=== PATIENT | female | born 1995 | race Caucasian/White ===

== ENCOUNTER 2016-04-28 10:42 | Emergency (ER) | payer BC, OTHER ==
[2016-04-28 12:15] VITALS: BP 100/61
--- NOTE | 2016-04-28 13:42 | UC ---
FLU HPI - HPI Summary HPI Summary: cough, fever to 100.3 this am, ST, right ear pain x few days. Mother has flu and pneumonia so pt wants to be checked. - History of Current Complaint Chief Complaint: UCRespiratory Stated Complaint: FEVER,COUGH,EAR PAIN,SINUS Time Seen by Provider: 04/28/16 12:18 Hx Obtained From: Patient Hx Last Menstrual Period: 2 weeks ago ?: No Onset/Duration: Gradual Onset, Lasting Days, Still Present Severity Currently: Moderate Severity Initially: Moderate Pain Intensity: 7 Pain Scale Used: 0-10 Numeric Associated Signs & Symptoms: Positive: Fever, Cough, Sore Throat, Nasal Congestion Related Hx: Possible Flu/Infectious Exposure - Allergy/Home Medications Allergies/Adverse Reactions: Allergies Allergy/AdvReac Type Severity Reaction Status Date / Time No Known Allergies Allergy Verified 04/28/16 12:15 Home Medications: Home Medications Cetirizine* [ZyrTEC*] 10 mg PO DAILY 04/28/16 [History Confirmed 04/28/16] ValACYclovir (*) [Valtrex 1 GM(*)] 1 gm PO SEE INSTRUCTIONS 04/28/16 [History Confirmed 04/28/16] PMH/Surg Hx/FS Hx/Imm Hx Previously Healthy: Yes - Surgical History Surgical History: Yes Surgery Procedure, Year, and Place: left bunionectomy 02/16 - Family History Known Family History: Positive: Other - pneumonia - Social History Occupation: Student Alcohol Use: Rare Substance Use Type: None Smoking Status (MU): Never Smoked Tobacco - Immunization History Vaccination Up to Date: Yes Review of Systems Constitutional: Fever Skin: Negative Eyes: Negative ENT: Sore Throat, Ear Ache Respiratory: Cough Cardiovascular: Negative Gastrointestinal: Negative Genitourinary: Negative Motor: Negative Neurovascular: Negative Musculoskeletal: Negative Neurological: Negative Psychological: Negative All Other Systems Reviewed And Are Negative: Yes Physical Exam Triage Information Reviewed: Yes Appearance: Well-Appearing, Well-Nourished, Pain Distress Vital Signs: Initial Vital Signs Temp 99.0 F 04/28/16 12:08 Pulse 100 04/28/16 12:08 Resp 16 04/28/16 12:08 BP 100/61 04/28/16 12:08 Pulse Ox 100 04/28/16 12:08 Vital Signs Reviewed: Yes Eyes: Positive: Conjunctiva Clear ENT: Positive: Pharyngeal erythema, TMs normal Neck: Positive: Supple, Nontender, No Lymphadenopathy Respiratory: Positive: Lungs clear, Normal breath sounds, No respiratory distress Cardiovascular: Positive: RRR, No Murmur, Pulses Normal, Brisk Capillary Refill Musculoskeletal Exam: Normal Neurological Exam: Normal Psychological Exam: Normal Skin Exam: Normal Flu Course/Dx - Course Course Of Treatment: influenza A and B neg. rapid strep - Differential Dx/Diagnosis Differential Diagnosis/HQI/PQRI: Bronchitis, Influenza, Other - strep Provider Diagnoses: serous otitis right ear. upper respiratory infection Discharge - Discharge Plan Condition: Stable Disposition: HOME Prescriptions: Azelastine 0.15% NASAL(NF) [Astepro 0.15% NASAL (NF)] 2 spray NASAL BID #1 bottle Fluticasone NASAL SPRAY 50MCG* [Flonase NASAL SPRAY 50MCG*] 2 spray BOTH NARES DAILY #1 btl Pseudoephedrine-Guaifenesin [Guaifenesin and Pseudoeph 60-600 mg] 1 tab PO BID # 20 tab Patient Education Materials: Upper Respiratory Infection (ED), Serous Otitis Media (ED) Referrals: No Primary Care Phys,NOPCP [Primary Care Provider] - Additional Instructions: We have given you a list of providers that are taking new patients. Return to urgent care if you have new or worsening symptoms.
== END 2016-04-28 14:42 | disposition home or self-care (01) ==
LOC: UCCORT 10:42
DX: H65.91 Unspecified nonsuppurative otitis media, right ear (principal); J06.9 Acute upper respiratory infection, unspecified
CPT/HCPCS: 87502; 87651; 99202; G0463

== ENCOUNTER 2016-12-01 17:45 | Emergency (ER) | payer BC, OTHER ==
[2016-12-01 18:00] VITALS: BP 120/60
[2016-12-01] MEDS ORDERED: Cephalexin CAP* 500 MG PO ONE (18:15)
--- NOTE | 2016-12-01 18:21 | UC ---
Complaint Female HPI - HPI Summary HPI Summary: dysuria and lower abdominal tenderness for 24 hrs. - History Of Current Complaint Chief Complaint: UCGU Stated Complaint: URINARY COMPLAINT Time Seen by Provider: 12/01/16 17:52 Hx Obtained From: Patient Hx Last Menstrual Period: 11/17/16 ?: No Onset/Duration: Sudden Onset, Lasting Days Timing: Lasting Days Severity Initially: Mild Severity Currently: Moderate Character: Burning Aggravating Factor(s): Urination Associated Signs And Symptoms: Positive: Negative - Allergies/Home Medications Allergies/Adverse Reactions: Allergies Allergy/AdvReac Type Severity Reaction Status Date / Time No Known Allergies Allergy Verified 04/28/16 12:15 Home Medications: Home Medications Desogestrel-Ethinyl Estradiol [Caziant 0.1/0.125/0.15 -0.025 mg] 1 nelsy PO DAILY 12/01/16 [History Confirmed 12/01/16] PMH/Surg Hx/FS Hx/Imm Hx Previously Healthy: Yes - Surgical History Surgical History: Yes Surgery Procedure, Year, and Place: left bunionectomy 02/16 - Family History Known Family History: Positive: Other - pneumonia - Social History Alcohol Use: Occasionally Substance Use Type: None Smoking Status (MU): Never Smoked Tobacco - Immunization History Vaccination Up to Date: Yes Review of Systems Constitutional: Negative Skin: Negative Eyes: Negative ENT: Negative Respiratory: Negative Cardiovascular: Negative Gastrointestinal: Negative Genitourinary: Dysuria, Frequency Motor: Negative Neurovascular: Negative Musculoskeletal: Negative Neurological: Negative Psychological: Negative All Other Systems Reviewed And Are Negative: Yes Physical Exam Triage Information Reviewed: Yes Appearance: Well-Appearing, Well-Nourished, Pain Distress Vital Signs: Initial Vital Signs Temp 98.8 F 12/01/16 17:53 Pulse 83 12/01/16 17:53 Resp 14 12/01/16 17:53 BP 120/60 12/01/16 17:53 Pulse Ox 100 12/01/16 17:53 Vital Signs Reviewed: Yes Eye Exam: Normal ENT Exam: Normal ENT: Positive: Hearing grossly normal, Pharynx normal, TMs normal Dental Exam: Normal Neck exam: Normal Neck: Positive: Supple, Nontender, No Lymphadenopathy Respiratory Exam: Normal Respiratory: Positive: Chest non-tender, Lungs clear, Normal breath sounds Cardiovascular Exam: Normal Cardiovascular: Positive: RRR, No Murmur, Pulses Normal Abdomen Description: Positive: Nontender, No Organomegaly, Soft, CVA Tenderness (R) - neg, CVA Tenderness (L) - neg Bowel Sounds: Positive: Present Musculoskeletal Exam: Normal Musculoskeletal: Positive: Other: Neurological Exam: Normal Psychological Exam: Normal Skin Exam: Normal Complaint Female Dx - Course Course Of Treatment: hx obtained, exam performed ,meds reviewed, treated for UTI - Differential Dx/Diagnosis Differential Diagnosis/HQI/PQRI: Ureteral Stone, Urinary Tract Infection Provider Diagnoses: UTI Discharge - Discharge Plan Condition: Stable Disposition: HOME Prescriptions: Cephalexin CAP* [Keflex CAP*] 500 mg PO BID #13 cap Patient Education Materials: Urinary Tract Infection in Women (ED) Referrals: No Primary Care Phys,NOPCP [Primary Care Provider] - Additional Instructions: 1. Take the medication as prescribed. 2. INcrease your fluid intake.
== END 2016-12-01 18:30 | disposition home or self-care (01) ==
LOC: UCCORT 17:45
DX: N39.0 Urinary tract infection, site not specified (principal)
CPT/HCPCS: 81003; 87077; 87086; 87186; 99212; A9270-GY; G0463